=== PATIENT | male | born 1970 | race Caucasian/White ===

== ENCOUNTER 2023-05-27 11:45 | Emergency (ER) | payer OTHER ==
[~2023-05-27] VITALS: Ht 193 cm; Wt 94.8 kg
[2023-05-27 12:31] LABS: BASOPHILS ABSOLUTE AUTO 0.02 K/mm3 (0.00-0.23); BASOPHILS PERCENT AUTO 1 % (0-2); EOSINOPHILS ABSOLUTE AUTO 0.01 K/mm3 (0.00-0.68); EOSINOPHILS PERCENT AUTO 0 % (0-6); Hematocrit 34.7 % (37.0-53.0); Hemoglobin 11.8 g/dL (13.5-17.5); IMMATURE GRAN ABSOLUTE AUTO 0.01 K/mm3 (0.00-0.10); IMMATURE GRAN PERCENT AUTO 0 % (0-1); LYMPHOCYTES ABSOLUTE AUTO 0.56 K/mm3 (0.84-5.20); LYMPHOCYTES PERCENT AUTO 22 % (21-46); MONOCYTES ABSOLUTE AUTO 0.31 K/mm3 (0.16-1.47); MONOCYTES PERCENT AUTO 12 % (4-13); Mean Corpuscular HGB 29.9 pg (26.0-34.0); Mean Corpuscular Volume 88 fL (80-100); Mean Platelet Volume 11.8 fL (9.1-12.4); NEUTROPHILS ABSOLUTE AUTO 1.61 K/mm3 (1.96-9.15); NEUTROPHILS PERCENT AUTO 64 % (41-73); Platelet Count 91 K/mm3 (150-400); RDW Coefficient Variation 17.4 % (11.7-14.2); RDW Standard Deviation 56.3 fL (35.1-46.3); Red Blood Cell Count 3.95 M/mm3 (4.30-5.90); White Blood Cell Count 2.52 K/mm3 (4.00-11.30)
[2023-05-27 12:51] LABS: BASOPHILS PERCENT MAN 0 % (0-2); EOSINOPHILS PERCENT MAN 0 % (0-6); LYMPHOCYTES ABSOLUTE MAN 0.57 K/mm3 (0.84-5.20); LYMPHOCYTES PERCENT MAN 23 % (21-46); MONOCYTES PERCENT MAN 12 % (4-13); NEUTROPHILS ABSOLUTE MAN 1.63 K/mm3 (1.96-9.15); SEG NEUTROPHILS PERCENT MAN 65 % (41-73); TOTAL CELLS COUNTED 100
[2023-05-27 13:11] LABS: Albumin, Blood 2.6 g/dL (3.4-5.0); Albumin/Globulin Ratio 0.8 (0.8-1.8); Bilirubin, Total 2.5 mg/dL (0.1-1.0); Bun/Creatinine Ratio 15.1 (12.0-20.0); Calcium, Blood 8.9 mg/dL (8.5-10.1); Creatinine, Blood 0.86 mg/dL (0.60-1.20); Globulin, Blood 3.2 g/dL (2.2-4.0); Potassium, Blood 4.1 mmol/L (3.5-5.5); Total Protein, Blood 5.8 g/dL (6.4-8.2)
[2023-05-27 18:05] VITALS: BP 115/77
== END 2023-05-27 18:33 | disposition home or self-care (01) ==
LOC: ER 11:45
PROVIDERS: Physician Assistant
DX: I31.39 Other pericardial effusion (noninflammatory) (principal); D61.818 Other pancytopenia
CPT/HCPCS: 80053; 83880; 84484; 85025; 93005; 93010; 93308; 93321; 99283-25

== ENCOUNTER 2023-06-22 13:03 | Inpatient (IN) | payer OTHER ==
[~2023-06-22] VITALS: Ht 190.5 cm; Wt 98.5 kg
[2023-06-22 14:14] LABS: Albumin, Blood 2.4 g/dL (3.4-5.0); Albumin/Globulin Ratio 0.8 (0.8-1.8); Bilirubin, Total 2.4 mg/dL (0.1-1.0); Calcium, Blood 8.7 mg/dL (8.5-10.1); Creatinine, Blood 0.94 mg/dL (0.60-1.20); Potassium, Blood 3.9 mmol/L (3.5-5.5); Total Protein, Blood 5.4 g/dL (6.4-8.2)
[2023-06-22 14:20] LABS: BASOPHILS ABSOLUTE AUTO 0.01 K/mm3 (0.00-0.23); BASOPHILS PERCENT AUTO 0 % (0-2); EOSINOPHILS ABSOLUTE AUTO 0.01 K/mm3 (0.00-0.68); EOSINOPHILS PERCENT AUTO 0 % (0-6); Hemoglobin 12.4 g/dL (13.5-17.5); IMMATURE GRAN ABSOLUTE AUTO 0.01 K/mm3 (0.00-0.10); IMMATURE GRAN PERCENT AUTO 0 % (0-1); LYMPHOCYTES ABSOLUTE AUTO 0.55 K/mm3 (0.84-5.20); LYMPHOCYTES PERCENT AUTO 20 % (21-46); MONOCYTES PERCENT AUTO 11 % (4-13); Mean Corpuscular HGB 29.9 pg (26.0-34.0); Mean Corpuscular HGB Conc 33.5 g/dL (31.5-36.5); Mean Corpuscular Volume 89 fL (80-100); Mean Platelet Volume 11.5 fL (9.1-12.4); NEUTROPHILS ABSOLUTE AUTO 1.83 K/mm3 (1.96-9.15); NEUTROPHILS PERCENT AUTO 67 % (41-73); Platelet Count 60 K/mm3 (150-400); RDW Coefficient Variation 18.3 % (11.7-14.2); RDW Standard Deviation 59.6 fL (35.1-46.3); Red Blood Cell Count 4.15 M/mm3 (4.30-5.90); White Blood Cell Count 2.71 K/mm3 (4.00-11.30)
[2023-06-22] MEDS ORDERED: FURO20 PO (14:25)
[2023-06-22 15:23] LABS: International Normalized Ratio 1.15
[2023-06-22 15:42] LABS: Source, Urine Clean Catch
[2023-06-22 15:55] LABS: Blood, Urine Neg (Neg); Color, Urine Amber (P-Yellow); Glucose Qualitative, Urine Neg (Neg); Ketones, Urine Neg (Neg); Leukocyte Esterase, Urine 1+ (Neg); Nitrite, Urine Neg (Neg); Protein, Urine 2+ (Neg); Specific Gravity, Urine 1.025 (1.003-1.022); Urobilinogen, Urine 2+ (Normal)
[2023-06-22 16:59] LABS: Bilirubin, Urine 1+ (Neg)
[2023-06-22 17:00] LABS: Appearance, Urine Hazy (Clear)
[2023-06-22 17:07] LABS: Hyaline Casts 0-2 /lpf (0-2); Mucus Mod (0-Heavy)
[2023-06-22 17:18] LABS: Amorphous Light (0-Heavy); Bacteria Many /hpf; Calcium Oxalate Crystals Many /hpf; Red Blood Cells, Urine 0-2 /hpf (0-2); Squamous Epithelial Cells Rare /hpf (Few)
[2023-06-22 20:48] VITALS: BP 129/86
--- NOTE | 2023-06-22 22:00 | NUR ---
ARRIVAL TO PCU NOTE RECEIVED REPORT FROM [employer] OPERATOR KADEEM REDDY AT ~2006, PT SHORTLY ARRIVED TO PCU 5 @2044. ARRIVED VIA WHEELCHAIR AND INDEPENDENTLY AMBULATED TO PCU BED WITH GAIT NOTED TO BE A LITTLE UNSTEADY. TELEMETRY REPORTED PT TO BE ST 100-110'S AND SPIKES INTO 130'S WITH AMBULATION. DENIES CP OR PRESSURE, SBP STABLE RANGING IN THE 120'S. EDEMA NOTED IN BLE WELL ABD. MAINTAINED SPO2 >95% ON RA WITH NO REPORTS OF SOB AT REST. DYSPNEA NOTED WITH MILD TO MODERATE EXERTION. DRY, OCCASIONAL COUGH NOTED. PT DENIES ANY PAIN. GI/, ABLE TO AMBULATE TO BATHROOM WITH MINIMAL ASSISTANCE, VOIDING TEA COLORED URINE. REPORTS FREQUENT VOIDS T/O THE NIGHT. WILL CONTINUE TO PROCESS MD ORDERS. DEONDRE ALFONSO UPON ARRIVAL TO PCU
[2023-06-23] VITALS (7 sets, daily range): BP systolic 107–115; BP diastolic 73–81
[2023-06-23 05:17] LABS: BASOPHILS ABSOLUTE AUTO 0.01 K/mm3 (0.00-0.23); BASOPHILS PERCENT AUTO 0 % (0-2); EOSINOPHILS ABSOLUTE AUTO 0.01 K/mm3 (0.00-0.68); EOSINOPHILS PERCENT AUTO 0 % (0-6); Hematocrit 31.4 % (37.0-53.0); Hemoglobin 10.7 g/dL (13.5-17.5); IMMATURE GRAN ABSOLUTE AUTO 0.01 K/mm3 (0.00-0.10); IMMATURE GRAN PERCENT AUTO 0 % (0-1); LYMPHOCYTES ABSOLUTE AUTO 0.65 K/mm3 (0.84-5.20); LYMPHOCYTES PERCENT AUTO 27 % (21-46); MONOCYTES ABSOLUTE AUTO 0.31 K/mm3 (0.16-1.47); MONOCYTES PERCENT AUTO 13 % (4-13); Mean Corpuscular HGB Conc 34.1 g/dL (31.5-36.5); Mean Corpuscular Volume 88 fL (80-100); Mean Platelet Volume 11.4 fL (9.1-12.4); NEUTROPHILS PERCENT AUTO 59 % (41-73); Platelet Count 57 K/mm3 (150-400); RDW Coefficient Variation 18.3 % (11.7-14.2); RDW Standard Deviation 58.2 fL (35.1-46.3); Red Blood Cell Count 3.57 M/mm3 (4.30-5.90); White Blood Cell Count 2.39 K/mm3 (4.00-11.30)
[2023-06-23 05:48] LABS: Albumin/Globulin Ratio 0.8 (0.8-1.8); Bilirubin, Total 2.4 mg/dL (0.1-1.0); Bun/Creatinine Ratio 21.8 (12.0-20.0); Calcium, Blood 8.2 mg/dL (8.5-10.1); Creatinine, Blood 0.82 mg/dL (0.60-1.20); Globulin, Blood 2.6 g/dL (2.2-4.0); Potassium, Blood 3.9 mmol/L (3.5-5.5); Thyroid Stimulating Hormone 3.95 uIU/mL (0.360-4.800); Total Protein, Blood 4.6 g/dL (6.4-8.2)
--- NOTE | 2023-06-23 06:57 | NUR ---
SHIFT SUMMARY: A/Ox4 AND COOPERATIVE WITH CARE. ANSWERS QUESTIONS APPROPRIATELY AND ABLE TO MAKE HIS NEEDS KNOWN. CARDIAC, CONTINUES TO REMAIN IN SR-ST RANGING 90-110'S WITH NO REPORTS OF CP OR PRESSURE T/O THE SHIFT. HR DOES JUMP INTO 130'S WITH AMBULATION HOWEVER. SBP HAS BEEN STABLE RANGING 110-130'S. SWELLING STILL NOTED ON BLE WELL ABD. RESPIRATORY, MAINTAINS SPO2 >95% ON RA WITH NO REPORTS OF SOB OR DYSPNEA AT REST. INCREASED WORK OF BREATHING NOTED WITH MILD TO MODERATE EXERTION. OCCASIONAL DRY, NON-PRODUCTIVE COUGH NOTED, ESPECIALLY WHEN LYING IN BED. GI/, ABLE TO AMBULATE TO BATHROOM VIA SBA. CONTINUES TO VOID JAMISON COLORED URINE. ABD. DISTENDED, BUT BS PRESENT IN ALL QUADRANTS. DENIES ANY N/V/D T/O THE SHIFT. ASSESSED PT FOR RISKS OF ANY IGNITION SOURCES WELL BEHAVIORS FOR INCREASED RISKS OF FIRE DANGER. PT EDUCATED ON COMMON SOURCES OF IGNITION WELL NEED TO KEEP A SAFE ENVIRONMENT. PT VOICED UNDERSTANDING. NO NEW ORDERS AT THIS TIME, WILL REPORT TO ONCOMING RN. DEONDRE ALFONSO OF THIS NOTE
[2023-06-23] MEDS ORDERED: FURO20 PO (11:59)
[2023-06-23] MEDS ORDERED: Rephresh8 GM PO (11:59)
[2023-06-23] MEDS ORDERED: ZYRTEC10 M2 PO (11:59)
[2023-06-23] MEDS ORDERED: BENZ100A PO (12:00)
[2023-06-23] MEDS ORDERED: [UNRECOGNIZED DRUG - OTHER] PO (12:00)
[2023-06-23] MEDS ORDERED: FISH OIL 1,0001 EA10 PO (12:01)
[2023-06-23] MEDS ORDERED: MULTI-VITAMIN1 EAC2 PO (12:02)
[2023-06-23] MEDS ORDERED: VITAMIN D325 MC3 PO (12:02)
--- NOTE | 2023-06-23 16:05 | NUR ---
Patient is lying in bed and alert. He tells me about his recent cancer diagnosis and the medical problems he is having currently. He then talks at length about his family, how they are coping and his concerns for them. He shares about his strong Confucianism maksim and how he has found so much peace and grounding as the events have unfolded because of that maksim. We talk about meaningful scriptures and inspirational quotes, we discuss ways to stay positive and hopeful, and I provide gentle safety counselor and prayer. Patient responded well and showed signs of increased hope. I will continue to remain available to patient and family.
--- NOTE | 2023-06-23 17:27 | NUR ---
SHIFT SUMMARY: PT HAS BEEN A&Ox4, COOPERATIVE W/CARE, ABLE TO MAKE NEEDS KNOWN. PT REPORTS ONGOING SOB W/ACTIVITY, DENIES SOB AT REST, O2 SATS >93% ON RA. PT DENIES CP, SIN TACH ON MONITOR W/RATE 100-110s. EDEMA IN BLE AND ABD. PT HAS BEEN AMBULATING INDEPENDENTLY TO BATHROOM, VOIDING DARK JAMISON COLORED URINE W/OUT DIFFICULTY. PT REPORTS BM THIS AM THAT WAS NORMAL FOR HIM. ABDOMINAL US COMPLETED THIS AM AT BEDSIDE, PROVIDER TO/FROM ROOM TO PROVIDE RESULTS. ECHO COMPLETED THIS EVENING AT BEDSIDE, RESULTS PENDING. AT THIS TIME, PT SITTING AT BEDSIDE W/CALL LIGHT IN REACH. WILL CONTINUE TO MONITOR AND TREAT ACCORDINGLY UNTIL CHANGE OF SHIFT.
[2023-06-24 03:46] VITALS: BP 111/77
[2023-06-24 04:28] LABS: BASOPHILS ABSOLUTE AUTO 0.02 K/mm3 (0.00-0.23); BASOPHILS PERCENT AUTO 1 % (0-2); EOSINOPHILS ABSOLUTE AUTO 0.01 K/mm3 (0.00-0.68); EOSINOPHILS PERCENT AUTO 0 % (0-6); Hematocrit 32.4 % (37.0-53.0); Hemoglobin 10.8 g/dL (13.5-17.5); IMMATURE GRAN ABSOLUTE AUTO 0.02 K/mm3 (0.00-0.10); IMMATURE GRAN PERCENT AUTO 1 % (0-1); LYMPHOCYTES ABSOLUTE AUTO 0.67 K/mm3 (0.84-5.20); LYMPHOCYTES PERCENT AUTO 29 % (21-46); MONOCYTES ABSOLUTE AUTO 0.28 K/mm3 (0.16-1.47); MONOCYTES PERCENT AUTO 12 % (4-13); Mean Corpuscular HGB 29.7 pg (26.0-34.0); Mean Corpuscular HGB Conc 33.3 g/dL (31.5-36.5); Mean Corpuscular Volume 89 fL (80-100); Mean Platelet Volume 12.5 fL (9.1-12.4); NEUTROPHILS ABSOLUTE AUTO 1.34 K/mm3 (1.96-9.15); NEUTROPHILS PERCENT AUTO 57 % (41-73); RDW Coefficient Variation 18.5 % (11.7-14.2); RDW Standard Deviation 60.2 fL (35.1-46.3); Red Blood Cell Count 3.64 M/mm3 (4.30-5.90); White Blood Cell Count 2.34 K/mm3 (4.00-11.30)
[2023-06-24 04:54] LABS: Albumin/Globulin Ratio 0.8 (0.8-1.8); Bilirubin, Total 2.1 mg/dL (0.1-1.0); Bun/Creatinine Ratio 20.7 (12.0-20.0); Calcium, Blood 8.4 mg/dL (8.5-10.1); Creatinine, Blood 0.87 mg/dL (0.60-1.20); Globulin, Blood 2.5 g/dL (2.2-4.0); Potassium, Blood 4.1 mmol/L (3.5-5.5); Total Protein, Blood 4.5 g/dL (6.4-8.2)
--- NOTE | 2023-06-24 06:08 | NUR ---
SHIFT SUMMARY A/Ox4 AND COOPERATIVE WITH CARE. ANSWERS QUESTIONS APPROPRIATELY AND ABLE TO MAKE HIS NEEDS KNOWN. CARDIAC, CONTINUES TO REMAIN IN SR-ST RANGING 90-110'S WITH NO REPORTS OF CP OR PRESSURE T/O THE SHIFT. HR DOES JUMP INTO 120-130'S WITH AMBULATION HOWEVER. SBP HAS BEEN STABLE RANGING 110'S. SWELLING STILL NOTED ON BLE WELL ABD, BUT IS REDUCED COMPARED TO PREVIOUS NOC SHIFT. RESPIRATORY, MAINTAINS SPO2 >92% ON RA WITH NO REPORTS OF SOB OR DYSPNEA AT REST. INCREASED WORK OF BREATHING NOTED WITH MILD TO MODERATE EXERTION. OCCASIONAL DRY, NON-PRODUCTIVE COUGH NOTED, ESPECIALLY WHEN LYING IN BED. GI/, ABLE TO AMBULATE TO BATHROOM VIA SBA. CONTINUES TO VOID JAMISON COLORED URINE. ASSESSED PT FOR RISKS OF ANY IGNITION SOURCES WELL BEHAVIORS FOR INCREASED RISKS OF FIRE DANGER. PT EDUCATED ON COMMON SOURCES OF IGNITION WELL NEED TO KEEP A SAFE ENVIRONMENT. PT VOICED UNDERSTANDING. NO NEW ORDERS AT THIS TIME, WILL REPORT TO ONCOMING RN. DEONDRE ALFONSO OF THIS NOTE
[2023-06-24 06:27] LABS: Platelet Count 52 K/mm3 (150-400)
[2023-06-24 07:48] VITALS: BP 119/76
[2023-06-24 11:20] VITALS: BP 106/75
[2023-06-24] MEDS ORDERED: SPIR50 PO (12:17)
[2023-06-24 13:26] VITALS: BP 107/79
--- NOTE | 2023-06-24 15:41 | NUR ---
DISCHARGE: ECHO RESULTS TO PROVIDER, PT STARTED ON NEW MEDICATION AND TOLERATING WELL. PT HAS BEEN CLEARED FOR DISCHARGE HOME. ALL IV ACCESS DC'd WNL. PT DRESSES SELF. DC PAPERWORK AND INSTRUCTIONS PROVIDED TO PT. PT DEPARTS IN NAD.
== END 2023-06-24 14:39 | disposition home or self-care (01) | DRG 840 ==
LOC: ER 13:03 → PCU 15:04
PROVIDERS: Family Medicine; Internal Medicine; Student in an Organized Health Care Education/Training Program; ADMIT Hospitalist
DX: C85.10 Unspecified B-cell lymphoma, unspecified site (principal); I50.31 Acute diastolic (congestive) heart failure; C79.89 Secondary malignant neoplasm of other specified sites; D61.818 Other pancytopenia; I31.39 Other pericardial effusion (noninflammatory); E87.1 Hypo-osmolality and hyponatremia; I31.31 Malignant pericardial effusion in diseases classified elsewhere; R18.0 Malignant ascites; R94.5 Abnormal results of liver function studies; I51.3 Intracardiac thrombosis, not elsewhere classified; R00.0 Tachycardia, unspecified
CPT/HCPCS: 36415; 71046; 76700; 80053; 81001; 82248; 83880; 84443; 85025; 85610; 87086; 93005; 93010; 93306; 96374; 96376; 99284-25; A9270; G0378; J1940

== ENCOUNTER 2023-08-04 11:10 | Day surgery (SDC) | payer OTHER ==
[~2023-08-04] VITALS: Ht 190.5 cm; Wt 90.0 kg
[~2023-08-04 11:10] MED LIST: BENZ100A PO; FISH OIL 1,0001 EA10 PO; FURO20 PO; MULTI-VITAMIN1 EAC2 PO; Rephresh8 GM PO; SPIR50 PO; VITAMIN D325 MC3 PO; ZYRTEC10 M2 PO; [UNRECOGNIZED DRUG - OTHER] PO
[2023-08-04 13:50] VITALS: BP 110/83
--- NOTE | 2023-08-04 15:01 | NUR ---
08/04/23 1501 Tee Stanton IV REMOVED INTACT. SITE WNL.
== END 2023-08-04 14:55 | disposition home or self-care (01) ==
LOC: ORSCSDS 11:10
PROVIDERS: Surgery
PROC: 0JH60WZ Insertion of Totally Implantable Vascular Access Device into Chest Subcutaneous Tissue and Fascia, Open Approach (ICD-10-PCS; principal; 2023-08-04 12:30)
DX: C81.08 Nodular lymphocyte predominant Hodgkin lymphoma, lymph nodes of multiple sites (principal); R16.1 Splenomegaly, not elsewhere classified; E78.5 Hyperlipidemia, unspecified; G47.33 Obstructive sleep apnea (adult) (pediatric); F43.10 Post-traumatic stress disorder, unspecified; Z79.899 Other long term (current) drug therapy
CPT/HCPCS: 77001; C1788; J0690; J1642; J1885; J2001; J2704; J2795; J3010; J7120

== ENCOUNTER 2024-01-08 12:17 | Day surgery (SDC) | payer OTHER ==
[~2024-01-08] VITALS: Ht 190.5 cm; Wt 89.1 kg
[~2024-01-08 12:17] MED LIST changes: +Lidocaine 2% 5 ML SDV ONE; +Lidocaine HCl/Pf 1% 5 ML VIAL ONE; +Methylene Blue 1% 100 MG/10 ML VIAL ONE
[2024-01-08] MEDS ORDERED: Glycopyrrolate 0.2 MG/ML 1MLVIAL ONE (12:18)
[2024-01-08] MEDS ORDERED: Ondansetron HCl 2 MG / ML 2ML Vial ONE (12:18)
[2024-01-08] MEDS ORDERED: Lactated Ringer's 1,000 ML IV ONE ×2 (12:19→12:47)
[2024-01-08] MEDS ORDERED: ePHEDrine Sulfate 50 MG/ML 1ML Injection ONE (12:19)
[2024-01-08] MEDS ORDERED: propofoL 50 ML IV ONE (12:19)
[2024-01-08] MEDS ORDERED: Atropine Sulfate 0.1 MG/ML 10ML SYR ONE (12:19)
[2024-01-08] MEDS ORDERED: MIRALAX17 GM (12:31)
[2024-01-08 14:43] VITALS: BP 107/86
== END 2024-01-08 14:52 | disposition home or self-care (01) ==
LOC: ORSCSDS 12:17
PROVIDERS: Surgery
PROC: 0DB48ZX Excision of Esophagogastric Junction, Via Natural or Artificial Opening Endoscopic, Diagnostic (ICD-10-PCS; principal; 2024-01-08 13:30)
PROC: 0DB68ZX Excision of Stomach, Via Natural or Artificial Opening Endoscopic, Diagnostic (ICD-10-PCS; principal; 2024-01-08 13:30)
DX: R93.3 Abnormal findings on diagnostic imaging of other parts of digestive tract (principal); E78.5 Hyperlipidemia, unspecified; K58.9 Irritable bowel syndrome, unspecified; K74.60 Unspecified cirrhosis of liver; F43.10 Post-traumatic stress disorder, unspecified; G47.30 Sleep apnea, unspecified; Z79.899 Other long term (current) drug therapy
CPT/HCPCS: 88305; 88342; J0461; J2001; J2405; J2704; J7120; Q9968

== ENCOUNTER 2025-04-06 11:59 | Day surgery (SDC) | payer OTHER ==
[~2025-04-06] VITALS: Ht 193 cm; Wt 106.7 kg
[~2025-04-06 11:59] MED LIST changes: +ALBU90OI INH; +FLOMAX0.4 MG PO; +GABA100 PO; -Lidocaine 2% 5 ML SDV ONE; -Lidocaine HCl/Pf 1% 5 ML VIAL ONE; +MELA3 PO; +MIRALAX17 GM; -Methylene Blue 1% 100 MG/10 ML VIAL ONE; +POLY500 PO
[2025-04-06] MEDS ORDERED: FINA5 PO (12:39)
[2025-04-06] MEDS ORDERED: MELO7.5 PO (12:39)
--- NOTE | 2025-04-06 13:54 | NUR ---
04/06/25 1354 LASHAE REDDY PT UP TO RESTROOM TO VOID URINE PRIOR TO SURGERY
--- NOTE | 2025-04-06 14:35 | NUR ---
04/06/25 1435 Sanjiv Best RN CHARTING UNDER SANJIV STARK
[2025-04-06 15:05] VITALS: BP 139/89
== END 2025-04-06 15:01 | disposition home or self-care (01) ==
LOC: ORSCSDS 11:59
PROVIDERS: Orthopaedic Surgery
PROC: 01N54ZZ Release Median Nerve, Percutaneous Endoscopic Approach (ICD-10-PCS; principal; 2025-04-06 14:05)
DX: G56.01 Carpal tunnel syndrome, right upper limb (principal); G47.33 Obstructive sleep apnea (adult) (pediatric); K74.60 Unspecified cirrhosis of liver; F43.10 Post-traumatic stress disorder, unspecified